=== PATIENT | male | born 1935 | race Caucasian/White ===

== ENCOUNTER 2017-11-10 03:08 | Inpatient (IN) | payer MEDICARE, MEDICAID ==
[~2017-11-10] VITALS: Ht 188 cm; Wt 86.4 kg
[~2017-11-10 03:08] MED LIST: HYDR-565 PO; TAMS0.4C32 PO
[2017-11-10 04:37] LABS: ALANINE AMINOTRANSFERASE 25 U/L (12-78); ALBUMIN 3.8 G/DL (3.4-5.0); ALBUMIN/GLOBULIN RATIO 1.3 (1.1-1.5); ALKALINE PHOSPHATASE 60 IU/L (46-116); ANION GAP 6 (8-16); ASPARTATE AMINO TRANSFERASE 15 U/L (10-37); BILIRUBIN,TOTAL 0.6 MG/DL (0.1-1.0); BLOOD UREA NITROGEN 27 MG/DL (7-18); CALCIUM 8.7 MG/DL (8.5-10.1); CHLORIDE 107 MMOL/L (99-107); GLUCOSE 92 MG/DL (70-104); POTASSIUM 3.8 MMOL/L (3.5-5.1); SODIUM 142 MMOL/L (135-145); TOTAL PROTEIN 6.8 G/DL (6.4-8.2); eGFR 81 ML/MIN
[2017-11-10 04:41] LABS: BASOPHILS % (AUTO) 0.2 % (0-1); EOSINOPHILS # (AUTO) 0.2 X10'3 (0-0.9); EOSINOPHILS % (AUTO) 2.5 % (0-6); HEMATOCRIT 37.4 % (42.0-52.0); HEMOGLOBIN 12.4 g/dl (14.0-17.9); LYMPHOCYTES % (AUTO) 13.8 % (21-51); MEAN CORPUSCULAR HEMOGLOBIN 29.9 PG (27.0-31.0); MEAN CORPUSCULAR HGB CONC 33.1 % (33.0-36.5); MEAN CORPUSCULAR VOLUME 90.3 FL (78-98); MEAN PLATELET VOLUME 9.2 FL (7.4-10.4); MONOCYTES # (AUTO) 0.6 X10'3 (0-0.9); MONOCYTES % (AUTO) 8.7 % (2-12); NEUTROPHILS # (AUTO) 5.2 X10'3 (1.8-7.7); NEUTROPHILS % (AUTO) 74.8 % (42-75); PLATELET COUNT 168 X10'3 (140-440); RED BLOOD COUNT 4.14 X10'6 (4.70-6.10); RED CELL DISTRIBUTION WIDTH 14.3 % (11.5-14.5); WHITE BLOOD COUNT 6.9 X10'3 (4.5-11.0)
[2017-11-10 04:45] LABS: PHOSPHORUS 2.9 MG/DL (2.3-4.5)
[2017-11-10 05:17] LABS: CLARITY,URINE CLEAR (Clear); COLOR,URINE STRAW (Yellow); GLUCOSE, URINE NEGATIVE (Neg); KETONES,URINE NEGATIVE (Neg); LEUKOCYTE ESTERASE ,URINE NEGATIVE (Neg); NITRITES, URINE NEGATIVE (Neg); OCCULT BLOOD,URINE NEGATIVE (Neg); PH,URINE 6.5 (4.8-8.0); PROTEIN,URINE NEGATIVE (Neg); UROBILINOGEN,URINE 0.2 E.U/dL (0.2-1.0)
[2017-11-10 05:20] LABS: UA COLLECTION TYPE CLN CATCH MIDSTREAM
[2017-11-10] MEDS ORDERED: labetalol 20mg/4ml (5mg/ml) syringe IV PRN (05:35)
[2017-11-10] MEDS ORDERED: AMLO5TAB PO (07:13)
[2017-11-10] MEDS ORDERED: LACT1CAP73 PO (07:13)
[2017-11-10] MEDS ORDERED: POTA10TA19 PO (07:14)
[2017-11-10] MEDS ORDERED: HYDR-3965 PO (07:15)
[2017-11-10] MEDS ORDERED: ACET-812 PO (07:17)
[2017-11-10] MEDS ORDERED: ASPI-611 PO (07:18)
[2017-11-10] MEDS ORDERED: MULT-1074 PO (07:19)
[2017-11-10] MEDS ORDERED: [UNRECOGNIZED DRUG - CODE] PO (07:21)
[2017-11-10] MEDS ORDERED: ASCO500C15 PO (07:23)
[2017-11-10] MEDS ORDERED: magnesium 4gm in 100ml NS 100 ML IV PRN (07:25)
[2017-11-10] MEDS ORDERED: potassium Cl 40MEQ/NS 500ml 500 ML IV PRN ×2 (07:25)
[2017-11-10] MEDS ORDERED: mag hydrox/Alum hydrox/simeth 30ml oral suspension PO PRN (07:25)
[2017-11-10] MEDS ORDERED: magnesium/D5W IVPB 50 ML IV PRN (07:25)
[2017-11-10] MEDS ORDERED: magnesium hydroxide 30ml (MOM) UD suspension PO PRN (07:25)
[2017-11-10] MEDS ORDERED: acetaminophen 325mg tablet PO PRN (07:25)
[2017-11-10] MEDS ORDERED: ondansetron/PF 4mg/2ml inj IV PRN (07:25)
[2017-11-10] MEDS ORDERED: magnesium Cl slow-release 64mg tablet PO PRN (07:25)
[2017-11-10] MEDS ORDERED: potassium Cl 20 mEq SR tablet PO PRN ×2 (07:25)
[2017-11-10] MEDS ORDERED: non-formulary drug (Acetaminophen (Tylenol Extra Strength) 1 TABLET) PO SCH (08:00)
[2017-11-10] MEDS: K and/or MAG REPLACEMENT MC SCH (08:00)
[2017-11-10] MEDS: tamsulosin 0.4mg capsule PO SCH (08:21)
[2017-11-10] MEDS: HYDROcodone/acetaminophen 5mg/325mg tablet PO PRN ×2 (08:22→19:19)
[2017-11-10] MEDS: amLODIPine 5mg tablet PO SCH (08:22)
[2017-11-10] MEDS: lactobacillus rhamnosus 10,000 MMU CELLS/CAPSULE PO SCH ×2 (08:22→19:09)
[2017-11-10] MEDS: multivitamins, therapeutics tablet PO SCH (08:23)
[2017-11-10] MEDS: aspirin 81mg tablet.DR PO SCH (08:23)
[2017-11-10] MEDS: lisinopril 10 MG tablet PO SCH (08:23)
[2017-11-10] MEDS: heparin, porcine 5000 units/ml vial SQ SCH ×2 (08:23→19:09)
[2017-11-10 13:20] VITALS: BP 154/85
[2017-11-10] MEDS: normal saline 1000ml 1,000 ML IV SCH (13:37)
[2017-11-10 18:00] VITALS: BP 166/55
[2017-11-11] VITALS: BP 165/80
[2017-11-11] MEDS: HYDROcodone/acetaminophen 5mg/325mg tablet PO PRN ×3 (04:32→19:11)
[2017-11-11 05:32] LABS: BASOPHILS % (AUTO) 0.4 % (0-1); EOSINOPHILS # (AUTO) 0.2 X10'3 (0-0.9); EOSINOPHILS % (AUTO) 3.2 % (0-6); HEMOGLOBIN 12.1 g/dl (14.0-17.9); LYMPHOCYTES # (AUTO) 1.7 X10'3 (1.1-4.8); LYMPHOCYTES % (AUTO) 31.5 % (21-51); MEAN CORPUSCULAR HEMOGLOBIN 29.9 PG (27.0-31.0); MEAN CORPUSCULAR HGB CONC 33.6 % (33.0-36.5); MEAN CORPUSCULAR VOLUME 89.1 FL (78-98); MEAN PLATELET VOLUME 8.7 FL (7.4-10.4); MONOCYTES # (AUTO) 0.6 X10'3 (0-0.9); MONOCYTES % (AUTO) 10.5 % (2-12); NEUTROPHILS # (AUTO) 2.9 X10'3 (1.8-7.7); NEUTROPHILS % (AUTO) 54.4 % (42-75); PLATELET COUNT 169 X10'3 (140-440); RED BLOOD COUNT 4.04 X10'6 (4.70-6.10); RED CELL DISTRIBUTION WIDTH 14.6 % (11.5-14.5); WHITE BLOOD COUNT 5.3 X10'3 (4.5-11.0)
[2017-11-11 06:03] LABS: ALANINE AMINOTRANSFERASE 21 U/L (12-78); ALBUMIN 3.2 G/DL (3.4-5.0); ALBUMIN/GLOBULIN RATIO 1.1 (1.1-1.5); ALKALINE PHOSPHATASE 55 IU/L (46-116); ANION GAP 4 (8-16); ASPARTATE AMINO TRANSFERASE 12 U/L (10-37); BILIRUBIN,TOTAL 0.8 MG/DL (0.1-1.0); BLOOD UREA NITROGEN 23 MG/DL (7-18); BUN/CREATININE RATIO 25.6 (5.4-32.0); CALCIUM 8.3 MG/DL (8.5-10.1); CHLORIDE 108 MMOL/L (99-107); GLUCOSE 91 MG/DL (70-104); MAGNESIUM 1.8 MG/DL (1.5-2.4); POTASSIUM 3.7 MMOL/L (3.5-5.1); SODIUM 140 MMOL/L (135-145); TOTAL CARBON DIOXIDE 28.2 MMOL/L (24-32); eGFR 81 ML/MIN
[2017-11-11 07:43] VITALS: BP 138/81
[2017-11-11] MEDS: K and/or MAG REPLACEMENT MC SCH (08:00)
[2017-11-11] MEDS: aspirin 81mg tablet.DR PO SCH (08:20)
[2017-11-11] MEDS: lisinopril 10 MG tablet PO SCH (08:20)
[2017-11-11] MEDS: multivitamins, therapeutics tablet PO SCH (08:20)
[2017-11-11] MEDS: lactobacillus rhamnosus 10,000 MMU CELLS/CAPSULE PO SCH ×2 (08:20→19:11)
[2017-11-11] MEDS: tamsulosin 0.4mg capsule PO SCH (08:20)
[2017-11-11] MEDS: amLODIPine 5mg tablet PO SCH (08:21)
[2017-11-11] MEDS: heparin, porcine 5000 units/ml vial SQ SCH ×2 (08:22→19:11)
[2017-11-11 11:54] VITALS: BP 165/83
[2017-11-11 19:00] VITALS: BP 115/54
[2017-11-11] MEDS: nystatin 15 GM powder TP SCH (20:48)
[2017-11-12] VITALS: BP 154/73
[2017-11-12] MEDS: normal saline 1000ml 1,000 ML IV SCH (03:26)
[2017-11-12] MEDS: HYDROcodone/acetaminophen 5mg/325mg tablet PO PRN (04:41)
[2017-11-12 06:01] LABS: BASOPHILS % (AUTO) 0.5 % (0-1); EOSINOPHILS # (AUTO) 0.2 X10'3 (0-0.9); EOSINOPHILS % (AUTO) 2.9 % (0-6); HEMATOCRIT 37.8 % (42.0-52.0); HEMOGLOBIN 12.9 g/dl (14.0-17.9); LYMPHOCYTES # (AUTO) 1.4 X10'3 (1.1-4.8); LYMPHOCYTES % (AUTO) 26.7 % (21-51); MEAN CORPUSCULAR HEMOGLOBIN 30.3 PG (27.0-31.0); MEAN CORPUSCULAR VOLUME 89.2 FL (78-98); MEAN PLATELET VOLUME 9.4 FL (7.4-10.4); MONOCYTES # (AUTO) 0.5 X10'3 (0-0.9); MONOCYTES % (AUTO) 9.4 % (2-12); NEUTROPHILS # (AUTO) 3.1 X10'3 (1.8-7.7); NEUTROPHILS % (AUTO) 60.5 % (42-75); PLATELET COUNT 172 X10'3 (140-440); RED BLOOD COUNT 4.24 X10'6 (4.70-6.10); RED CELL DISTRIBUTION WIDTH 14.2 % (11.5-14.5); WHITE BLOOD COUNT 5.2 X10'3 (4.5-11.0)
[2017-11-12 07:06] LABS: ALANINE AMINOTRANSFERASE 26 U/L (12-78); ALBUMIN 3.4 G/DL (3.4-5.0); ALBUMIN/GLOBULIN RATIO 1.1 (1.1-1.5); ALKALINE PHOSPHATASE 51 IU/L (46-116); ANION GAP 9 (8-16); ASPARTATE AMINO TRANSFERASE 12 U/L (10-37); BILIRUBIN,TOTAL 0.7 MG/DL (0.1-1.0); BLOOD UREA NITROGEN 20 MG/DL (7-18); CALCIUM 8.7 MG/DL (8.5-10.1); CHLORIDE 106 MMOL/L (99-107); CREATININE 0.87 MG/DL (0.60-1.10); GLUCOSE 92 MG/DL (70-104); MAGNESIUM 1.8 MG/DL (1.5-2.4); POTASSIUM 3.5 MMOL/L (3.5-5.1); SODIUM 143 MMOL/L (135-145); TOTAL CARBON DIOXIDE 27.6 MMOL/L (24-32); TOTAL PROTEIN 6.4 G/DL (6.4-8.2); eGFR 84 ML/MIN
[2017-11-12 07:45] VITALS: BP 190/94
[2017-11-12] MEDS: tamsulosin 0.4mg capsule PO SCH (07:53)
[2017-11-12] MEDS: multivitamins, therapeutics tablet PO SCH (07:54)
[2017-11-12] MEDS: lisinopril 10 MG tablet PO SCH (07:54)
[2017-11-12] MEDS: aspirin 81mg tablet.DR PO SCH (07:54)
[2017-11-12] MEDS: amLODIPine 5mg tablet PO SCH (07:54)
[2017-11-12] MEDS: lactobacillus rhamnosus 10,000 MMU CELLS/CAPSULE PO SCH ×2 (07:54→19:29)
[2017-11-12] MEDS: nystatin 15 GM powder TP SCH ×3 (07:55→20:34)
[2017-11-12] MEDS: heparin, porcine 5000 units/ml vial SQ SCH ×2 (07:55→19:29)
[2017-11-12] MEDS: K and/or MAG REPLACEMENT MC SCH (08:00)
[2017-11-12 12:00] VITALS: BP 174/77
[2017-11-12] MEDS ORDERED: HYDROcodone/acetaminophen 5mg/325mg tablet PO PRN (12:40)
[2017-11-12] MEDS: hyDRALAzine 10mg tablet PO SCH ×2 (16:10→23:17)
[2017-11-12] MEDS ORDERED: acetaminophen 325mg tablet PO PRN (17:15)
[2017-11-12 19:00] VITALS: BP 128/67
[2017-11-13] VITALS: BP 176/96
[2017-11-13 00:25] VITALS: BP 150/81
[2017-11-13 06:01] LABS: BASOPHILS % (AUTO) 0.5 % (0-1); EOSINOPHILS # (AUTO) 0.1 X10'3 (0-0.9); EOSINOPHILS % (AUTO) 2.7 % (0-6); HEMOGLOBIN 12.7 g/dl (14.0-17.9); LYMPHOCYTES # (AUTO) 1.5 X10'3 (1.1-4.8); MEAN CORPUSCULAR HEMOGLOBIN 30.2 PG (27.0-31.0); MEAN CORPUSCULAR HGB CONC 33.4 % (33.0-36.5); MEAN CORPUSCULAR VOLUME 90.5 FL (78-98); MEAN PLATELET VOLUME 9.1 FL (7.4-10.4); MONOCYTES # (AUTO) 0.5 X10'3 (0-0.9); MONOCYTES % (AUTO) 10.1 % (2-12); NEUTROPHILS # (AUTO) 3.1 X10'3 (1.8-7.7); NEUTROPHILS % (AUTO) 58.7 % (42-75); PLATELET COUNT 174 X10'3 (140-440); RED CELL DISTRIBUTION WIDTH 14.3 % (11.5-14.5); WHITE BLOOD COUNT 5.2 X10'3 (4.5-11.0)
[2017-11-13 06:24] LABS: ALANINE AMINOTRANSFERASE 26 U/L (12-78); ALBUMIN 3.3 G/DL (3.4-5.0); ALBUMIN/GLOBULIN RATIO 1.2 (1.1-1.5); ALKALINE PHOSPHATASE 49 IU/L (46-116); ANION GAP 7 (8-16); ASPARTATE AMINO TRANSFERASE 14 U/L (10-37); BILIRUBIN,TOTAL 0.7 MG/DL (0.1-1.0); BLOOD UREA NITROGEN 17 MG/DL (7-18); BUN/CREATININE RATIO 20.2 (5.4-32.0); CHLORIDE 107 MMOL/L (99-107); CREATININE 0.84 MG/DL (0.60-1.10); GLUCOSE 89 MG/DL (70-104); MAGNESIUM 1.8 MG/DL (1.5-2.4); POTASSIUM 3.6 MMOL/L (3.5-5.1); SODIUM 143 MMOL/L (135-145); TOTAL CARBON DIOXIDE 28.9 MMOL/L (24-32); TOTAL PROTEIN 6.1 G/DL (6.4-8.2); eGFR 88 ML/MIN
[2017-11-13 07:12] VITALS: BP 149/85
[2017-11-13] MEDS ORDERED: amLODIPine 5mg tablet PO SCH (08:00)
[2017-11-13] MEDS: lactobacillus rhamnosus 10,000 MMU CELLS/CAPSULE PO SCH (08:13)
[2017-11-13] MEDS: multivitamins, therapeutics tablet PO SCH (08:13)
[2017-11-13] MEDS: tamsulosin 0.4mg capsule PO SCH (08:13)
[2017-11-13] MEDS: hyDRALAzine 10mg tablet PO SCH (08:13)
[2017-11-13] MEDS: lisinopril 10 MG tablet PO SCH (08:13)
[2017-11-13] MEDS: aspirin 81mg tablet.DR PO SCH (08:13)
[2017-11-13] MEDS: nystatin 15 GM powder TP SCH ×2 (08:13→13:23)
[2017-11-13] MEDS: heparin, porcine 5000 units/ml vial SQ SCH (08:14)
[2017-11-13] MEDS: K and/or MAG REPLACEMENT MC SCH (09:17)
[2017-11-13] MEDS ORDERED: AMLO5TAB16 PO (12:02)
[2017-11-13] MEDS ORDERED: hyDRALAzine tablet PO (12:02)
[2017-11-13] MEDS ORDERED: LISI10TA4 PO (12:02)
[2017-11-13] MEDS ORDERED: hyDRALAzine 10mg tablet PO SCH (16:00)
== END 2017-11-13 14:36 | DRG 884 ==
LOC: ER 03:08 → ED HOLD 07:21 → SUR 3N 13:14
PROVIDERS: ADMIT Internal Medicine; ATTEND Internal Medicine
DX: F03.90 Unspecified dementia, unspecified severity, without behavioral disturbance, psychotic disturbance, mood disturbance, and anxiety (principal); I16.0 Hypertensive urgency; N40.0 Benign prostatic hyperplasia without lower urinary tract symptoms; G89.29 Other chronic pain; R53.1 Weakness; I10 Essential (primary) hypertension; I25.10 Atherosclerotic heart disease of native coronary artery without angina pectoris; R29.6 Repeated falls; Z95.1 Presence of aortocoronary bypass graft; Z88.5 Allergy status to narcotic agent; Z79.82 Long term (current) use of aspirin; Z79.899 Other long term (current) drug therapy
CPT/HCPCS: 36415; 71045; 80053; 81003; 82140; 83735; 83880; 84100; 84484; 85025; 87070; 93005; 97110; 97116; 97162; 97530; 99285; J1644; J7030